=== PATIENT | female | born 1975 | race Caucasian/White ===

== ENCOUNTER 2018-07-15 08:30 | Emergency (ER) | payer OTHER ==
[~2018-07-15] VITALS: Ht 160 cm; Wt 65.8 kg
[~2018-07-15 08:30] MED LIST: COLACE100 MG PO; PERCOCET 5/3251 TAB PO; PRILOSEC20 MG PO
== END 2018-07-15 17:04 | disposition home or self-care (01) ==
LOC: ER 08:30
DX: B34.9 Viral infection, unspecified (principal); N39.0 Urinary tract infection, site not specified

== ENCOUNTER 2018-12-05 05:30 | Day surgery (SDC) | payer OTHER ==
[~2018-12-05 05:30] MED LIST changes: +CIPRO100 MG; +MIRAPEX0.125 MG PO
[2018-12-05] MEDS ORDERED: PERCOCET 5-3251 EACH PO (09:39)
[2018-12-05] MEDS ORDERED: COLACE100 MG PO (09:41)
== END 2018-12-05 18:02 | disposition home or self-care (01) ==
LOC: CIR.AMB 05:30
DX: D22.5 Melanocytic nevi of trunk (principal); K62.4 Stenosis of anus and rectum; K62.89 Other specified diseases of anus and rectum
CPT/HCPCS: 46700; 46200; 46505; 64430; J0585